=== PATIENT | male | born 1970 | race Caucasian/White ===

== ENCOUNTER 2017-01-13 12:10 | Inpatient (IN) | payer MEDICAID ==
[~2017-01-13] VITALS: Ht 188 cm; Wt 110.8 kg
[2017-01-13 12:24] VITALS: BP 138/105; PULSE 97; RESP 16; TEMP 99.1; O2SAT 96
[2017-01-13] MEDS ORDERED: SODIUM CHLOR 0.9% 1000 ML INJ 1,000 ML IV SCH (12:46)
[2017-01-13] MEDS ORDERED: FLUC100T2 PO (12:53)
[2017-01-13] MEDS ORDERED: FURO20TA PO (12:53)
[2017-01-13] MEDS ORDERED: LEVE750T8 PO (12:53)
[2017-01-13] MEDS ORDERED: OMEP40CA2 PO (12:53)
[2017-01-13] MEDS ORDERED: BACT800T5 PO (12:53)
[2017-01-13] MEDS ORDERED: LORA1TAB12 PO (12:53)
[2017-01-13] MEDS ORDERED: AMLO5TAB2 PO (12:53)
[2017-01-13] MEDS ORDERED: DEXA2TAB PO (12:53)
[2017-01-13] MEDS ORDERED: LISI20TA3 PO (12:53)
--- NOTE | 2017-01-13 12:53 | PD ---
HPI Chief Complaint: Abdominal Pain Time Seen by Provider: 12:32 Travel History International Travel<30 days: No Contact w/Intl Traveler<30days: No Traveled to known affect area: No History of Present Illness HPI The patient is a 46-year-old male who presents to the emergency department for epigastric abdominal pain. The patient states he developed epigastric abdominal pain last night. The pain is located in epigastrium, radiates to the back, is associated with nausea and vomiting last night. The patient denies any history of similar symptoms in the past, however, does have a history of bilateral flank pain secondary to a previous kidney infection. The patient denies any known history of gallstones or pancreatitis, denies any daily alcohol use. The patient does note a previous history of inguinal hernia repair, but denies any other abdominal surgeries. The patient denies any fever , chills, sweats, chest pain, or shortness of breath. The patient does have a history of previous astrocytoma and glioblastoma with previous surgery by his oncologist, the patient is from [place]. PFSH Past Medical History Cancer: Yes (GLIOBLASTOMA) Chemotherapy: Yes Hypertension: Yes Seizures: Yes Influenza Vaccination: No Past Surgical History Other Surgery: Yes (BRAIN TUMOR:GLIOBLASTOMA) Social History Alcohol Use: Yes (rarely) Tobacco Use: Yes (1 ppd) Substance Use: No Allergies-Medications (Allergen,Severity, Reaction): Coded Allergies: Codeine (Verified Adverse Reaction, Intermediate, SLEEP, 01/13/17) Reported Meds & Prescriptions Reported Meds & Active Scripts Active Reported Lorazepam 1 Mg Tab 1 Mg PO Q6H PRN Furosemide 20 Mg Tab 20 Mg PO DAILY Dexamethasone 2 Mg Tab 2 Mg PO DAILY Fluconazole 100 Mg Tab 100 Mg PO DAILY Amlodipine (Amlodipine Besylate) 5 Mg Tab 5 Mg PO DAILY Omeprazole 40 Mg Cap 40 Mg PO DAILY Bactrim DS (Sulfamethoxazole-Trimethoprim) 800-160 Mg Tab 1 Tab PO BID Lisinopril-Hctz 20-25 Mg Tab 1 Tab PO DAILY Levetiracetam 750 Mg Tab 750 Mg PO BID Review of Systems Except as stated in HPI: all other systems reviewed are Neg General / Constitutional: No: Fever Cardiovascular: No: Chest Pain or Discomfort Respiratory: No: Shortness of Breath Gastrointestinal: Positive: Nausea, Vomiting, Abdominal Pain, No: Diarrhea Genitourinary: No: Urgency, Frequency, Dysuria Skin: No Rash Physical Exam Narrative GENERAL: Awake, alert, pleasant 46-year-old male who appears his stated age and is in no acute respiratory distress. SKIN: Warm and dry. HEAD: Well-healed scar right aspect of the head. EYES: No injection or drainage. ENT: No nasal bleeding or discharge. Mucous membranes pink and moist. NECK: Trachea midline. No JVD. CARDIOVASCULAR: Regular rate and rhythm. No murmur appreciated. RESPIRATORY: No accessory muscle use. Clear to auscultation. Breath sounds equal bilaterally. GASTROINTESTINAL: Abdomen soft, stria noted. Tenderness in epigastrium and right upper quadrant. No guarding or rigidity. MUSCULOSKELETAL: No obvious deformities. No clubbing. No cyanosis. No edema. NEUROLOGICAL: Awake and alert. No obvious cranial nerve deficits. Motor grossly within normal limits. Normal speech. PSYCHIATRIC: Appropriate mood and affect; insight and judgment normal. Data Data Last Documented VS Vital Signs Date Time Temp Pulse Resp B/P Pulse Ox O2 Delivery O2 Flow Rate FiO2 01/13/17 13:44 18 01/13/17 13:23 97 Room Air 01/13/17 13:19 74 161/102 01/13/17 12:24 99.1 Orders Complete Blood Count With Diff (01/13/17 12:46) Comprehensive Metabolic Panel (01/13/17 12:46) Lipase (01/13/17 12:46) Urinalysis - C+S If Indicated (01/13/17 12:46) Ct Abd/Pel W/O Iv Contrast (01/13/17 12:46) Iv Access Insert/Monitor (01/13/17 12:46) Ecg Monitoring (01/13/17 12:46) Oximetry (01/13/17 12:46) Morphine Inj (Morphine Inj) (01/13/17 13:00) Ondansetron Inj (Zofran Inj) (01/13/17 13:00) Sodium Chlor 0.9% 1000 Ml Inj (Ns 1000 M (01/13/17 12:46) Sodium Chloride 0.9% Flush (Ns Flush) (01/13/17 13:00) Electrocardiogram (01/13/17 12:46) Triglycerides (01/13/17 13:49) Sodium Chlor 0.9% 1000 Ml Inj (Ns 1000 M (01/13/17 14:00) Admit Order (Ed Use Only) (01/13/17 14:22) Labs Laboratory Tests Test 01/13/17 01/13/17 13:00 13:05 Urine Collection Type CLEAN CATCH Urine Color YELLOW Urine Turbidity CLEAR Urine pH 5.5 Urine Specific [place] 1.035 Urine Protein TRACE mg/dL Urine Glucose (UA) 500 mg/dL Urine Ketones 15 mg/dL Urine Occult Blood LARGE Urine Nitrite NEG Urine Bilirubin NEG Urine Leukocyte Esterase NEG Urine RBC 15-19 /hpf Urine WBC 0-2 /hpf Urine Squamous Epithelial 0-5 /hpf Cells Microscopic Urinalysis Comment CULT NOT INDICATED Urine Collection Time 13:00 White Blood Count 14.4 TH/MM3 Red Blood Count 5.07 MIL/MM3 Hemoglobin 16.1 GM/DL Hematocrit 45.7 % Mean Corpuscular Volume 90.2 FL Mean Corpuscular Hemoglobin 31.7 PG Mean Corpuscular Hemoglobin 35.2 % Concent Red Cell Distribution Width 14.1 % Platelet Count 206 TH/MM3 Mean Platelet Volume 9.0 FL CBC Comment AUTO DIFF Differential Total Cells 100 Counted Neutrophils % (Manual) 78 % Band Neutrophils % 6 % Lymphocytes % 6 % Monocytes % 9 % Eosinophils % 1 % Neutrophils # (Manual) 12.1 TH/MM3 Differential Comment FINAL DIFF MANUAL Sodium Level 131 MEQ/L Potassium Level 3.7 MEQ/L Chloride Level 93 MEQ/L Carbon Dioxide Level 25.3 MEQ/L Anion Gap 13 MEQ/L Blood Urea Nitrogen 9 MG/DL Creatinine 0.89 MG/DL Estimat Glomerular Filtration 92 ML/MIN Rate Random Glucose 348 MG/DL Calcium Level 7.9 MG/DL Total Bilirubin 0.9 MG/DL Aspartate Amino Transf 99 U/L (AST/SGOT) Alanine Aminotransferase 72 U/L (ALT/SGPT) Alkaline Phosphatase 70 U/L Total Protein 7.1 GM/DL Albumin 3.4 GM/DL Lipase 2053 U/L [facility] Medical Decision Making Medical Screen Exam Complete: Yes Emergency Medical Condition: Yes Medical Record Reviewed: Yes Interpretation(s) EKG reveals normal sinus rhythm with a rate 83. Nonspecific T wave changes. CT the abdomen and pelvis reveals inflammatory swelling and a small amount of fluid around the patella pancreas, likely pancreatitis. There is no evidence of ductal dilatation, calcification, or atrophy to suggest underlying malignancy. Fatty liver. Last Impressions Abdomen/Pelvis CT 01/13/17 0106 Signed Impressions: Service Date/Time: Friday, January 13, 2017 13:19 - CONCLUSION: Inflammatory swelling and a small amount of fluid around the tail of the pancreas likely pancreatitis. There is no evidence of ductal dilatation, calcification or atrophy to suggest underlying malignancy. Fatty liver John Dugan MD Laboratory Tests Test 01/13/17 01/13/17 13:00 13:05 Urine Collection Type CLEAN CATCH Urine Color YELLOW Urine Turbidity CLEAR Urine pH 5.5 Urine Specific [place] 1.035 Urine Protein TRACE mg/dL Urine Glucose (UA) 500 mg/dL Urine Ketones 15 mg/dL Urine Occult Blood LARGE Urine Nitrite NEG Urine Bilirubin NEG Urine Leukocyte Esterase NEG Urine RBC 15-19 /hpf Urine WBC 0-2 /hpf Urine Squamous Epithelial 0-5 /hpf Cells Microscopic Urinalysis Comment CULT NOT INDICATED Urine Collection Time 13:00 White Blood Count 14.4 TH/MM3 Red Blood Count 5.07 MIL/MM3 Hemoglobin 16.1 GM/DL Hematocrit 45.7 % Mean Corpuscular Volume 90.2 FL Mean Corpuscular Hemoglobin 31.7 PG Mean Corpuscular Hemoglobin 35.2 % Concent Red Cell Distribution Width 14.1 % Platelet Count 206 TH/MM3 Mean Platelet Volume 9.0 FL CBC Comment AUTO DIFF Differential Total Cells 100 Counted Neutrophils % (Manual) 78 % Band Neutrophils % 6 % Lymphocytes % 6 % Monocytes % 9 % Eosinophils % 1 % Neutrophils # (Manual) 12.1 TH/MM3 Differential Comment FINAL DIFF MANUAL Sodium Level 131 MEQ/L Potassium Level 3.7 MEQ/L Chloride Level 93 MEQ/L Carbon Dioxide Level 25.3 MEQ/L Anion Gap 13 MEQ/L Blood Urea Nitrogen 9 MG/DL Creatinine 0.89 MG/DL Estimat Glomerular Filtration 92 ML/MIN Rate Random Glucose 348 MG/DL Calcium Level 7.9 MG/DL Total Bilirubin 0.9 MG/DL Aspartate Amino Transf 99 U/L (AST/SGOT) Alanine Aminotransferase 72 U/L (ALT/SGPT) Alkaline Phosphatase 70 U/L Total Protein 7.1 GM/DL Albumin 3.4 GM/DL Lipase 2053 U/L Differential Diagnosis Differential diagnosis includes pancreatitis, gastritis, peptic ulcer disease, biliary colic, cholecystitis, choledocholithiasis, inferior myocardial infarction, pyelonephritis, nephrolithiasis, partial small bowel obstruction. Narrative Course IV was established, labs are drawn and sent, and the patient was placed on cardiac telemetry monitoring and continuous pulse oximetry monitoring. EKG was ordered and interpreted. The patient was administered IV fluids, morphine, and Zofran. CT of the abdomen and pelvis was ordered. Lipase level was sent to lab. Lipase was positive, greater than 2000. CT the abdomen and pelvis reveals inflammatory swelling and a small amount of fluid around to tell the pancreas consistent with acute pancreatitis, no evidence of ductal dilatation. The patient's glucose is elevated, his pancreatitis may be secondary to hypertriglyceridemia. Therefore, triglyceride level will be sent to lab. The on-call medical service was paged for admission. Physician Communication Physician Communication I discussed the patient with Dr. Pool who agrees with admission. Diagnosis Primary Impression: Pancreatitis Qualified Code: K85.90 - Acute pancreatitis, unspecified complication status, unspecified pancreatitis type Admitting Information Admitting Physician Requests: Admit Condition: Stable Félix Don MD Jan 13, 2017 12:53
[2017-01-13] MEDS ORDERED: ONDANSETRON HCL 4 MG/2 ML VIAL IVP ONE (13:00)
[2017-01-13] MEDS ORDERED: MORPHINE SULFATE 4 MG/ML INJ IV PUSH ONE (13:00)
[2017-01-13] MEDS ORDERED: SODIUM CHLORIDE 0.9% FLUSH 5 ML FLUSH IVF PRN (13:00)
[2017-01-13 13:12] LABS: BLOOD, URINE LARGE (NEG); GLUCOSE,URINE 500 mg/dL (NEG); KETONE, URINE 15 mg/dL (NEG); NITRITE,URINE NEG (NEG); PH, URINE 5.5 (5.0-8.5)
[2017-01-13 13:18] LABS: HEMATOCRIT 45.7 % (39.0-51.0); MEAN CELL VOLUME 90.2 FL (80.0-100.0); MEAN CORPUSCULAR HEMOGLOBIN 31.7 PG (27.0-34.0); MEAN CORPUSCULAR HGB CONC 35.2 % (32.0-36.0); PLATELET COUNT 206 TH/MM3 (150-450); RED BLOOD COUNT 5.07 MIL/MM3 (4.50-5.90); RED CELL DISTRIBUTION WIDTH 14.1 % (11.6-17.2); WHITE BLOOD COUNT 14.4 TH/MM3 (4.0-11.0)
[2017-01-13 13:19] VITALS: BP 161/102; PULSE 74; RESP 18; O2SAT 97
[2017-01-13 13:23] VITALS: RESP 18; O2SAT 97
[2017-01-13 13:23] LABS: CHLORIDE 93 MEQ/L (98-107); POTASSIUM 3.7 MEQ/L (3.5-5.1); SODIUM (NA) 131 MEQ/L (136-145)
[2017-01-13 13:24] LABS: COMMENT (UR) CULT NOT INDICATED; CULTURE IF INDICATED CULT NOT INDICATED; METHOD OF COLLECTION CLEAN CATCH; RBC, URINE 15-19 /hpf (0-3); SQUAMOUS EPITHELIAL CELL URINE 0-5 /hpf (0-5); URINE COLOR YELLOW (YELLW/STRAW); WBC, URINE 0-2 /hpf (0-5)
[2017-01-13 13:25] LABS: HEMO FLAGS AUTO DIFF
[2017-01-13 13:28] LABS: ANION GAP 13 MEQ/L (5-15); BICARBONATE 25.3 MEQ/L (21.0-32.0)
[2017-01-13 13:31] LABS: GLOMERULAR FILTRATION RATE 92 ML/MIN (>89)
[2017-01-13 13:32] LABS: TOTAL BILIRUBIN ADULT 0.9 MG/DL (0.2-1.0)
[2017-01-13 13:33] LABS: ALKALINE PHOSPHATASE 70 U/L (45-117)
--- NOTE | 2017-01-13 13:42 | RADHPO ---
EXAM DATE/TIME: 01/13/2017 13:19 [facility] COMPARISON: No previous studies available for comparison. INDICATIONS : Epigastric pain, radiating to back. ORAL CONTRAST: No oral contrast ingested. RADIATION DOSE: 21.76 CTDIvol (mGy) MEDICAL HISTORY : Hypertension. Glioblastoma. SURGICAL HISTORY : Craniotomy. ENCOUNTER: Initial ACUITY: 1 day PAIN SCALE: 2/10 LOCATION: upper quadrant TECHNIQUE: Volumetric scanning of the abdomen and pelvis was performed. Using automated exposure control and ad justment of the mA and/or kV according to patient size, radiation dose was kept as low as reasonably achievable to obtain optimal diagnostic quality images. FINDINGS: LOWER LUNGS: The visualized lower lungs are clear. LIVER: Homogeneously lower density without lesion. There is no dilation of the biliary tree. No calcified gallstones. SPLEEN: Normal size without lesion. PANCREAS: Inflammatory swelling and a small amount of fluid around the tail of the pancreas likely pancreatitis . There is no evidence of ductal dilatation, calcification or atrophy to suggest underlying malignanc y.. KIDNEYS: Normal in size and shape. There is no mass, stone, or hydronephrosis. ADRENAL GLANDS: Within normal limits. VASCULAR: There is no aortic aneurysm. BOWEL/MESENTERY: The stomach, small bowel, and colon demonstrate no acute abnormality. There is no free intraperitone al air or fluid. ABDOMINAL WALL: Within normal limits. RETROPERITONEUM: There is no lymphadenopathy. BLADDER: No wall thickening or mass. REPRODUCTIVE: Within normal limits. INGUINAL: There is no lymphadenopathy or hernia. MUSCULOSKELETAL: Within normal limits for patient age. CONCLUSION: Inflammatory swelling and a small amount of fluid around the tail of the pancreas likely pancreatitis . There is no evidence of ductal dilatation, calcification or atrophy to suggest underlying malignanc y. Fatty liver John Dugan MD on January 13, 2017 at 13:39 Board Certified Radiologist. This report was verified electronically.
[2017-01-13 13:46] LABS: ALT (GPT) 72 U/L (12-78); AST (GOT) 99 U/L (15-37)
[2017-01-13 13:47] LABS: BLOOD UREA NITROGEN 9 MG/DL (7-18)
[2017-01-13 13:52] LABS: BANDS 6 % (0-6); EOSINOPHILS 1 % (0-4); NEUTROPHIL # MANUAL DIFF 12.1 TH/MM3 (1.8-7.7); POLYS (SEG NEUTROPHILS) 78 % (16-70); SCAN/DIFF FINAL DIFF MANUAL; WBC DIFF SAMPLE 100
[2017-01-13] MEDS ORDERED: SODIUM CHLOR 0.9% 1000 ML INJ 1,000 ML IV ONE ×2 (14:00→15:30)
[2017-01-13 14:45] VITALS: BP 139/90; PULSE 90; RESP 16; O2SAT 98
[2017-01-13] MEDS ORDERED: ONDANSETRON HCL 4 MG/2 ML VIAL IVP PRN (15:30)
[2017-01-13] MEDS ORDERED: GLUCAGON 1 MG/ML VIAL OTHER PRN (15:30)
[2017-01-13] MEDS ORDERED: SODIUM CHLORIDE 0.9% FLUSH 5 ML FLUSH FLUSH PRN (15:30)
[2017-01-13] MEDS ORDERED: LORazepam 1 MG TAB PO PRN (15:30)
[2017-01-13] MEDS ORDERED: DEXTROSE 50% IN WATER 50 ML VIAL(D50) IV PUSH PRN (15:30)
--- NOTE | 2017-01-13 15:38 | HHI.HP ---
[facility] Service [facility] Primary Care Physician No Primary Care Physician Admission Diagnosis pancreatitis, hyperglycemia Diagnoses: Chief Complaint: Epigastric abdominal pain Travel History International Travel<30 Days: No Contact w/Intl Traveler <30 Da: No Traveled to Known Affected Are: No History of Present Illness A 46-year-old gentleman with a history of brain tumors who have developed acute onset of epigastric pain for 2 days. He did take Advil once and this improved however he did come back and that is flaking to the hospital. He had elevated lipase and associated nausea and vomiting. He does not drink alcohol does admit that sugars have been high in the past. He has random blood sugar of 348. He has been on dexamethasone for his brain tumors and denies any recent change in his steroids. The patient is admitted to the hospital to do her dehydration with associated pancreatitis and likely new onset diabetes. Review of Systems Constitutional: DENIES: Diaphoretic episodes, Fatigue, Fever, Weight gain, Weight loss, Chills, Dizziness, Change in appetite, Night Sweats Endocrine: DENIES: Heat/cold intolerance, Polydipsia, Polyuria, Polyphagia Ears, nose, mouth, throat: DENIES: Tinnitus, Hearing loss, Vertigo, Nasal discharge, Oral lesions, Throat pain, Hoarseness, Ear Pain, Running Nose, Epistaxis, Sinus Pain, Toothache, Odynophagia Respiratory: DENIES: Apneas, Cough, Snoring, Wheezing, Hemoptysis, Sputum production, Shortness of breath Cardiovascular: DENIES: Chest pain, Palpitations, Syncope, Dyspnea on Exertion , PND, Lower Extremity Edema, Orthopnea, Claudication Gastrointestinal: COMPLAINS OF: Abdominal pain, Nausea, Anorexia Genitourinary: DENIES: Sexual dysfunction, Urinary frequency, Urinary incontinence, Urgency, Hematuria, Dysuria, Nocturia, Penile Discharge, Testicular Pain, Testicular Swelling Neurologic: DENIES: Abnormal gait, Headache, Localized weakness, Paresthesias, Seizures, Speech Problems, Tremor, Poor Balance Psychiatric: COMPLAINS OF: Confusion (at baseline due to his brain tumors), DENIES: Anxiety, Mood changes, Depression, Hallucinations, Agitation, Suicidal Ideation, Homicidal Ideation, Delusions Past Family Social History Past Medical History Glioblastoma multiforme, astrocytoma Chronic steroids Hypertension Seizure prophylaxis Past Surgical History Resection of brain tumor Reported Medications Reviewed in the medical record Allergies: Coded Allergies: Codeine (Verified Adverse Reaction, Intermediate, SLEEP, 01/13/17) Active Ordered Medications Reviewed in the medical record Family History Family history of brain tumor, father did have a malignancy and there is no family history of diabetes Social History No current alcohol, tobacco or pack per day, lives in [place] and is visiting his mother Physical Exam Vital Signs Vital Signs Date Time Temp Pulse Resp B/P Pulse Ox O2 Delivery O2 Flow Rate FiO2 01/13/17 14:45 90 16 139/90 98 Room Air 01/13/17 13:44 18 01/13/17 13:23 18 97 Room Air 01/13/17 13:19 74 18 161/102 97 Room Air 01/13/17 12:24 99.1 97 16 138/105 96 Physical Exam GENERAL: This is a obese, male with dry mucous membranes, calm, poor memory at baseline SKIN: No rashes, ecchymoses or lesions. Cool and dry. HEAD: Atraumatic. Normocephalic. No temporal or scalp tenderness. EYES: Pupils equal round and reactive. Extraocular motions intact. No scleral icterus. No injection or drainage. ENT: Nose without bleeding, purulent drainage or septal hematoma. Throat without erythema, tonsillar hypertrophy or exudate. Uvula midline. Airway patent. NECK: Trachea midline. No JVD or lymphadenopathy. Supple, nontender, no meningeal signs. CARDIOVASCULAR: Regular rate and rhythm without murmurs, gallops, or rubs. RESPIRATORY: Clear to auscultation. Breath sounds equal bilaterally. No wheezes , rales, or rhonchi. GASTROINTESTINAL: Abdomen soft, non-tender, nondistended. No hepato-splenomegaly , or palpable masses. No guarding. MUSCULOSKELETAL: Extremities without clubbing, cyanosis, or edema. No joint tenderness, effusion, or edema noted. No calf tenderness. Negative Homans sign bilaterally. NEUROLOGICAL: Awake and alert. Cranial nerves II through XII intact. Motor and sensory grossly within normal limits. Five out of 5 muscle strength in all muscle groups. Normal speech. Laboratory Laboratory Tests Test 01/13/17 01/13/17 13:00 13:05 Urine Collection Type CLEAN CATCH Urine Color YELLOW Urine Turbidity CLEAR Urine pH 5.5 Urine Specific [place] 1.035 Urine Protein TRACE Urine Glucose (UA) 500 Urine Ketones 15 Urine Occult Blood LARGE Urine Nitrite NEG Urine Bilirubin NEG Urine Leukocyte Esterase NEG Urine RBC 15-19 Urine WBC 0-2 Urine Squamous Epithelial 0-5 Cells Microscopic Urinalysis Comment CULT NOT INDICATED Urine Collection Time 13:00 White Blood Count 14.4 Red Blood Count 5.07 Hemoglobin 16.1 Hematocrit 45.7 Mean Corpuscular Volume 90.2 Mean Corpuscular Hemoglobin 31.7 Mean Corpuscular Hemoglobin 35.2 Concent Red Cell Distribution Width 14.1 Platelet Count 206 Mean Platelet Volume 9.0 CBC Comment AUTO DIFF Differential Total Cells 100 Counted Neutrophils % (Manual) 78 Band Neutrophils % 6 Lymphocytes % 6 Monocytes % 9 Eosinophils % 1 Neutrophils # (Manual) 12.1 Differential Comment FINAL DIFF MANUAL Sodium Level 131 Potassium Level 3.7 Chloride Level 93 Carbon Dioxide Level 25.3 Anion Gap 13 Blood Urea Nitrogen 9 Creatinine 0.89 Estimat Glomerular Filtration 92 Rate Random Glucose 348 Calcium Level 7.9 Total Bilirubin 0.9 Aspartate Amino Transf 99 (AST/SGOT) Alanine Aminotransferase 72 (ALT/SGPT) Alkaline Phosphatase 70 Total Protein 7.1 Albumin 3.4 Lipase 2052 Result Diagram: 01/13/17 1305 01/13/17 1305 Imaging Last Impressions Abdomen/Pelvis CT 01/13/17 1246 Signed Impressions: Service Date/Time: Friday, January 13, 2017 13:19 - CONCLUSION: Inflammatory swelling and a small amount of fluid around the tail of the pancreas likely pancreatitis. There is no evidence of ductal dilatation, calcification or atrophy to suggest underlying malignancy. Fatty liver John Dugan MD Assessment and Plan Problem List: (1) Pancreatitis ICD Code: K85.90 Status: Acute Plan: Lipid panel pending Patient does not drink very much at all May be due to his new onset diabetes. Continue with IV fluids, clear liquid diet for now, control diabetes (2) DM2 (diabetes mellitus, type 2) ICD Code: E11.9 Status: Acute Plan: Appears to be a new diagnosis Patient's random blood sugars greater than 300. Will add Karie, clinical unit educator, follow-up lipid panel and check a TSH and hemoglobin A1c may be related to steroids as he has been on dexamethasone for his brain tumors Assessment and Plan Patient with a history of glioblastoma multiforme and astrocytoma Code Status Full code Discussed Condition With Patient, lina LANDIS M.D. Physician Certification 2 Midnight Certification Type: Admission for Inpatient Services Order for Inpatient Services The services are ordered in accordance with Medicare regulations or non- Medicare payer requirements, as applicable. In the case of services not specified as inpatient-only, they are appropriately provided as inpatient services in accordance with the 2-midnight benchmark. Estimated LOS (days): 3 3 days is the estimated time the patient will need to remain in the hospital, assuming treatment plan goals are met and no additional complications. Post-Hospital Plan: Home Notes: patient's mom to provide pcp in [place] Problem Qualifiers (1) Pancreatitis: Qualified Code: K85.90 - Acute pancreatitis, unspecified complication status, unspecified pancreatitis type Sary Pool MD Jan 13, 2017 15:38
[2017-01-13] MEDS: SODIUM CHLOR 0.9% 1000 ML INJ 1,000 ML IV SCH (15:44)
[2017-01-13] MEDS ORDERED: PILL SPLITTER OTHER PRN (15:45)
[2017-01-13 20:00] VITALS: BP 166/96; PULSE 98; RESP 20; TEMP 98.9; O2SAT 93
[2017-01-13] MEDS ORDERED: ENALAPRILAT 2.5 MG/2 ML VIAL IV PUSH PRN (20:00)
[2017-01-13] MEDS: SODIUM CHLORIDE 0.9% FLUSH 5 ML FLUSH FLUSH SCH (21:00)
[2017-01-13] MEDS ORDERED: INSULIN DETEMIR 100 UNITS/ML VIAL SQ SCH (21:00)
[2017-01-13] MEDS: levETIRAcetam 250 MG TAB PO SCH (21:37)
[2017-01-14] VITALS: BP 170/86; PULSE 109; RESP 20; TEMP 99.4; O2SAT 93
[2017-01-14] MEDS: SODIUM CHLOR 0.9% 1000 ML INJ 1,000 ML IV SCH ×2 (01:26→11:26)
[2017-01-14 04:00] VITALS: BP 130/76; PULSE 118; RESP 20; TEMP 99.5; O2SAT 94
[2017-01-14 06:40] LABS: MEAN CELL VOLUME 90.5 FL (80.0-100.0); MEAN CORPUSCULAR HEMOGLOBIN 30.9 PG (27.0-34.0); MEAN CORPUSCULAR HGB CONC 34.1 % (32.0-36.0); PLATELET COUNT 181 TH/MM3 (150-450); RED CELL DISTRIBUTION WIDTH 14.4 % (11.6-17.2); WHITE BLOOD COUNT 20.7 TH/MM3 (4.0-11.0)
[2017-01-14 06:52] LABS: CHLORIDE 97 MEQ/L (98-107); POTASSIUM 3.2 MEQ/L (3.5-5.1); SODIUM (NA) 133 MEQ/L (136-145)
[2017-01-14 06:55] LABS: HEMATOLOGY STUDY COMMENT ND; HEMO FLAGS AUTO DIFF
[2017-01-14 06:56] LABS: ANION GAP 15 MEQ/L (5-15); BICARBONATE 21.4 MEQ/L (21.0-32.0)
[2017-01-14 06:59] LABS: GLOMERULAR FILTRATION RATE 122 ML/MIN (>89)
[2017-01-14 07:49] LABS: NEUTROPHIL # MANUAL DIFF 17.8 TH/MM3 (1.8-7.7); PLATELET ESTIMATE SMEAR NORMAL (NORMAL); PLATELET MORPHOLOGY NORMAL (NORMAL); POLYS (SEG NEUTROPHILS) 86 % (16-70); SCAN/DIFF FINAL DIFF MANUAL; WBC DIFF SAMPLE 100
[2017-01-14 08:00] VITALS: BP 124/60; PULSE 87; RESP 18; TEMP 98.5; O2SAT 95
[2017-01-14 08:14] LABS: BLOOD UREA NITROGEN LESS THAN 4 MG/DL (7-18)
[2017-01-14] MEDS: levETIRAcetam 250 MG TAB PO SCH ×2 (08:43→21:20)
[2017-01-14] MEDS: LISINOPRIL 20 MG TAB PO SCH (08:44)
[2017-01-14] MEDS: HYDROCHLOROTHIAZIDE 25 MG TAB PO SCH (08:44)
[2017-01-14] MEDS: PANTOPRAZOLE SOD 40 MG DELAYED RELEASE TAB PO SCH (08:44)
[2017-01-14] MEDS: SODIUM CHLORIDE 0.9% FLUSH 5 ML FLUSH FLUSH SCH ×2 (08:45→21:21)
[2017-01-14] MEDS: FLUCONAZOLE 100 MG TAB PO SCH (08:45)
[2017-01-14] MEDS: amLODIPine BESYLATE 5 MG TAB PO SCH (08:53)
[2017-01-14] MEDS: DEXAMETHASONE 4 MG TAB PO SCH (08:53)
[2017-01-14] MEDS ORDERED: POTASSIUM CHLORIDE 10 MEQ CONTROLLED RELEASE TAB PO ONE ×2 (09:15→12:00)
[2017-01-14 10:00] LABS: HDL CHOLESTEROL 29.2 MG/DL (40.0-60.0)
--- NOTE | 2017-01-14 11:12 | HHI.PR ---
Subjective Remarks Patient seen and evaluated today in follow-up for acute pancreatitis likely secondary to hypertriglyceridemia of uncontrolled diabetes (new onset) patient' s triglycerides over 1999. Patient has some improvement with IV hydration and insulin overnight. We'll add.gemfibrozil. Care plan discussed with patient and with mom at bedside Abdominal pain improved. Patient will like to try to advance his diet Objective Vitals Vital Signs Date Time Temp Pulse Resp B/P Pulse Ox O2 Delivery O2 Flow Rate FiO2 01/14/17 08:00 98.5 87 18 124/60 95 01/14/17 04:00 99.5 118 20 130/76 94 01/14/17 00:00 99.4 109 20 170/86 93 01/13/17 20:00 98.9 98 20 166/96 93 Automatic Cuff 01/13/17 14:45 90 16 139/90 98 Room Air 01/13/17 13:44 18 01/13/17 13:23 18 97 Room Air 01/13/17 13:19 74 18 161/102 97 Room Air 01/13/17 12:24 99.1 97 16 138/105 96 I/O 01/13/17 01/13/17 01/13/17 01/14/17 01/14/17 01/14/17 07:00 15:00 23:00 07:00 15:00 23:00 Intake Total 414 ml 435 ml Balance 414 ml 435 ml Intake Oral 60 ml 60 ml IV Total 354 ml 375 ml # Voids 2 2 # Bowel Movements 0 0 Result Diagram: 01/14/17 0603 01/14/17 0603 Imaging Last Impressions Abdomen/Pelvis CT 01/13/17 1246 Signed Impressions: Service Date/Time: Friday, January 13, 2017 13:19 - CONCLUSION: Inflammatory swelling and a small amount of fluid around the tail of the pancreas likely pancreatitis. There is no evidence of ductal dilatation, calcification or atrophy to suggest underlying malignancy. Fatty liver John Dugan MD Objective Remarks GENERAL: This is a well-nourished, well-developed patient, in no apparent distress. Post craniotomy scar CARDIOVASCULAR: Regular rate and rhythm without murmurs, gallops, or rubs. RESPIRATORY: Clear to auscultation. Breath sounds equal bilaterally. No wheezes , rales, or rhonchi. GASTROINTESTINAL: Abdomen soft, non-tender, nondistended. Normal active bowel sounds MUSCULOSKELETAL: Extremities without clubbing, cyanosis, or edema. NEURO: Alert & Oriented x4 to person, place, time, situation. Moves all ext x4 Procedures None A/P Problem List: (1) Pancreatitis ICD Code: K85.90 Status: Acute Plan: likely due to hypertriglyceridemia secondary to new onset diabetes Patient does not drink very much at all continue insulin, gemfibrozil calcium corrected IVF PPI, (2) DM2 (diabetes mellitus, type 2) ICD Code: E11.9 Status: Acute Plan: Appears to be a new diagnosis Patient's random blood sugars greater than 300. Will cont bid Levemir, adult educator, follow-up lipid panel and nl TSH and hemoglobin A1c pending may be related to steroids as he has been on dexamethasone for his brain tumors (3) Brain tumor ICD Code: D49.6 Status: Acute Plan: Strip astrocytoma and glioblastoma managed in [place] and for which he is taking dexamethasone, keppra Status post right frontal craniotomy with encephalomalacia and surrounding bleeding ulcers. MRI report done 11/2016 shows stable edema Due to patient's encephalopathy mother has requested repeat MRI to the increase in confusion (4) Hypokalemia ICD Code: E87.6 Status: Acute Plan: replace, check mag (5) Hyperglyceridemia ICD Code: E78.1 Status: Acute Plan: Gemfibrozil, Insulin likely due to uncontrolled DM2 Assessment and Plan heparin Discharge Planning from [place] Problem Qualifiers (1) Pancreatitis: Qualified Code: K85.90 - Acute pancreatitis, unspecified complication status, unspecified pancreatitis type Sary Pool MD Jan 14, 2017 11:12
--- NOTE | 2017-01-14 11:28 | EKG ---
Date Performed: 01/13/2017 Time Performed: 12:51:28 PTAGE: 46 years EKG: Sinus rhythm Inferior T wave changes are nonspecific Borderline ECG NO PREVIOUS TRACING DOCTOR: John Jules Interpretating Date/Time 01/14/2017 11:26:55
[2017-01-14] MEDS ORDERED: SODIUM CHLOR 0.9% 1000 ML INJ 1,000 ML IV ONE (11:30)
[2017-01-14 12:00] VITALS: BP 132/94; PULSE 98; RESP 18; TEMP 98.1; O2SAT 96
[2017-01-14] MEDS: ASPIRIN EC 81 MG TABEC PO SCH (12:55)
[2017-01-14] MEDS: NICOTINE 14 MG/24 HR PATCH TD SCH (12:56)
[2017-01-14] MEDS: INSULIN DETEMIR 100 UNITS/ML VIAL SQ SCH ×2 (13:00→21:21)
[2017-01-14] MEDS: HEPARIN SODIUM - SQ 10,000 UNITS/ML VIAL SQ SCH ×2 (13:01→21:22)
[2017-01-14 15:47] LABS: HEMOGLOBIN A1a 1.1 %; HEMOGLOBIN A1b 3.3 %; HEMOGLOBIN Ao 76.4 %; HEMOGLOBIN LA1C 3.4 %; HEMOGLOBIN P3 5.4 %
[2017-01-14] MEDS ORDERED: GADODIAMIDE PF 287 MG/ML 20 ML VIAL (for RAD MRI) IV ONE (15:57)
[2017-01-14 16:00] VITALS: BP 126/89; PULSE 102; RESP 20; TEMP 98.6; O2SAT 95
--- NOTE | 2017-01-14 16:48 | RADHPO ---
EXAM DATE/TIME: 01/14/2017 15:26 [place] COMPARISON: No previous studies available for comparison. INDICATIONS : Mass. Confusion. Fatigue. History of Glioblastoma. CONTRAST: 20 cc Omniscan (gadodiamide) IV MEDICAL HISTORY : Glioblastoma. Hypertension. SURGICAL HISTORY : Craniotomy. Umbilical hernia repair. ENCOUNTER: Subsequent ACUITY: 2 day PAIN SCORE: 0/10 LOCATION: Head. TECHNIQUE: Multiplanar, multisequence MRI of the brain was performed both prior to and following the administrat ion of paramagnetic contrast. FINDINGS: The patient has a history of resection for a glioblastoma in the right orbital frontal region sitting just above the right orbit. There are periventricular white matter changes evident as well as posts urgical changes. Ventricular size is appropriate. There are no extra-axial fluid collections appreciated. Following intravenous administration of gadolinium there is no abnormal contrast enhancement to sugge st recurrent or residual tumor. CONCLUSION: Post surgical changes on the right without recurrent or residual tumor. I do not see an etiology for the patient's confusion and mental status changes. Teddy Sarkar MD FACR on January 14, 2017 at 16:24 Board Certified Radiologist. This report was verified electronically.
[2017-01-14] MEDS: GEMFIBROZIL 600 MG TAB PO SCH (18:36)
[2017-01-14 20:00] VITALS: BP 119/71; PULSE 108; RESP 20; TEMP 97.5; O2SAT 98
[2017-01-15] VITALS: BP 122/87; PULSE 99; RESP 18; TEMP 97.6; O2SAT 95
[2017-01-15] MEDS: SODIUM CHLOR 0.9% 1000 ML INJ 1,000 ML IV SCH ×3 (00:32→21:22)
[2017-01-15 06:07] LABS: HEMATOCRIT 43.7 % (39.0-51.0); MEAN CELL VOLUME 91.3 FL (80.0-100.0); MEAN CORPUSCULAR HEMOGLOBIN 31.6 PG (27.0-34.0); MEAN CORPUSCULAR HGB CONC 34.6 % (32.0-36.0); PLATELET COUNT 152 TH/MM3 (150-450); RED BLOOD COUNT 4.79 MIL/MM3 (4.50-5.90); RED CELL DISTRIBUTION WIDTH 14.5 % (11.6-17.2); WHITE BLOOD COUNT 17.5 TH/MM3 (4.0-11.0)
[2017-01-15 06:11] LABS: HEMO FLAGS AUTO DIFF
[2017-01-15] MEDS: GEMFIBROZIL 600 MG TAB PO SCH (06:12)
[2017-01-15] MEDS: HEPARIN SODIUM - SQ 10,000 UNITS/ML VIAL SQ SCH ×3 (06:12→21:21)
[2017-01-15 06:35] LABS: BANDS 6 % (0-6); NEUTROPHIL # MANUAL DIFF 15.6 TH/MM3 (1.8-7.7); POLYS (SEG NEUTROPHILS) 83 % (16-70); WBC DIFF SAMPLE 100
[2017-01-15 06:36] LABS: PLATELET ESTIMATE SMEAR NORMAL (NORMAL); PLATELET MORPHOLOGY NORMAL (NORMAL); SCAN/DIFF FINAL DIFF MANUAL
[2017-01-15 08:00] VITALS: BP 130/100; PULSE 103; RESP 26; TEMP 97.7; O2SAT 95
[2017-01-15] MEDS: HYDROCHLOROTHIAZIDE 25 MG TAB PO SCH (08:26)
[2017-01-15] MEDS: LISINOPRIL 20 MG TAB PO SCH (08:27)
[2017-01-15] MEDS: amLODIPine BESYLATE 5 MG TAB PO SCH (08:27)
[2017-01-15] MEDS: PANTOPRAZOLE SOD 40 MG DELAYED RELEASE TAB PO SCH (08:28)
[2017-01-15] MEDS: FLUCONAZOLE 100 MG TAB PO SCH (08:28)
[2017-01-15] MEDS: DEXAMETHASONE 4 MG TAB PO SCH (08:28)
[2017-01-15] MEDS: ASPIRIN EC 81 MG TABEC PO SCH (08:29)
[2017-01-15] MEDS: levETIRAcetam 250 MG TAB PO SCH ×2 (08:29→21:21)
[2017-01-15] MEDS: NICOTINE 14 MG/24 HR PATCH TD SCH (08:31)
[2017-01-15] MEDS: REMOVE OLD NICODERM (NICOTINE) PATCH TD SCH (08:31)
[2017-01-15] MEDS: SODIUM CHLORIDE 0.9% FLUSH 5 ML FLUSH FLUSH SCH ×2 (08:32→21:21)
[2017-01-15] MEDS: INSULIN DETEMIR 100 UNITS/ML VIAL SQ SCH (08:36)
[2017-01-15] MEDS ORDERED: ATORVASTATIN 20 MG TAB PO SCH (09:00)
--- NOTE | 2017-01-15 10:41 | HHI.DS ---
Discharge Summary Admission Date Jan 13, 2017 at 14:23 Discharge Date: Jan 15, 2017 Admitting Diagnosis pancreatitis, hyperglycemia (1) Pancreatitis ICD Code: K85.90 (2) DM2 (diabetes mellitus, type 2) ICD Code: E11.9 (3) Brain tumor ICD Code: D49.6 (4) Hypokalemia ICD Code: E87.6 (5) Hyperglyceridemia ICD Code: E78.1 Procedures None Brief History - From Admission A 46-year-old gentleman with a history of brain tumors who have developed acute onset of epigastric pain for 2 days. He had elevated lipase and associated nausea and vomiting. He does not drink alcohol does admit that sugars have been high in the past. He has random blood sugar of 348. He has been on dexamethasone for his brain tumors and denies any recent change in his steroids. The patient is admitted to the hospital due to dehydration with associated pancreatitis and likely new onset diabetes. CBC/BMP: 01/15/17 0546 01/14/17 0603 Significant Findings Laboratory Tests Test 01/13/17 01/13/17 01/14/17 01/15/17 13:00 13:05 06:03 05:46 Urine Glucose (UA) 500 mg/dL (NEG) Urine Ketones 15 mg/dL (NEG) Urine Occult Blood LARGE (NEG) Urine RBC 15-19 /hpf (0-3) White Blood Count 14.4 TH/MM3 20.7 TH/MM3 17.5 TH/MM3 (4.0-11.0) (4.0-11.0) (4.0-11.0) Neutrophils % (Manual) 78 % (16-70) 86 % (16-70) 83 % (16-70) Lymphocytes % 6 % (9-44) 5 % (9-44) 7 % (9-44) Monocytes % 9 % (0-8) 9 % (0-8) Neutrophils # (Manual) 12.1 TH/MM3 17.8 TH/MM3 15.6 TH/MM3 (1.8-7.7) (1.8-7.7) (1.8-7.7) Sodium Level 131 MEQ/L 133 MEQ/L (136-145) (136-145) Chloride Level 93 MEQ/L 97 MEQ/L (98-107) (98-107) Random Glucose 348 MG/DL 288 MG/DL (74-106) (74-106) Calcium Level 7.9 MG/DL (8.5-10.1) Aspartate Amino Transf 99 U/L (15-37) (AST/SGOT) Lipase 2053 U/L 737 U/L (73-393) (73-393) Potassium Level 3.2 MEQ/L (3.5-5.1) Blood Urea Nitrogen LESS THAN 4 MG/DL (7-18) Hemoglobin A1c 9.8 % (4.3-6.0) Triglycerides Level 2240 MG/DL 1229 MG/DL (42-150) (42-150) Cholesterol Level 481 MG/DL (120-200) HDL Cholesterol 29.2 MG/DL (40.0-60.0) PE at Discharge GENERAL: Well-nourished, well-developed patient. SKIN: Warm and dry. HEAD: Normocephalic. EYES: No scleral icterus. No injection or drainage. NECK: Supple, trachea midline. No JVD or lymphadenopathy. CARDIOVASCULAR: Regular rate and rhythm without murmurs, gallops, or rubs. RESPIRATORY: Breath sounds equal bilaterally. No accessory muscle use. GASTROINTESTINAL: Abdomen soft, non-tender, nondistended. EXTREMITIES: No cyanosis, or edema. NEUROLOGICAL: Awake, alert, and oriented x 3. Non-focal. Gait within normal limits. Pt update on day of discharge Patient has tolerated breakfast. Denies any abdominal pain nausea or vomiting. Awaiting consultation with the glue drier operator. Discussed with the patient' s as well as his mother at bedside. They have a plane ticket for him to fly back up to [place] tomorrow with his and they will make an appointment with his primary care physician to be seen next week Dr. Christian Jiménez. Hospital Course Patient was admitted to the hospital and treated with pain medication and IV fluids. His triglycerides came back elevated greater than 2000. This is the likely etiology of the pancreatitis. The patient does not take any cholesterol medication. I will start him on Lipitor. The patient also has type 2 diabetes. His and mother are bedside. The patient's mother is quite a bit more knowledgeable about the patient's medical condition on the . Apparently the patient lives in [place] and has been down here visiting his mother for 6 weeks. Apparently the came down as well to see if they were going to live here. However they have children in a house up in [place] and plan to fly him back up there tomorrow. Patient's and mother have a lot of questions about diabetes. The glue drier operator has been consulted. Yesterday they felt the patient was more confused. A brain MRI showed postsurgical changes with no acute findings, no masses. Patient is alert and oriented today and ambulatory. Patient agrees to take his diabetes medications as prescribed. I have asked the patient's and mother to schedule him a follow-up appointment with his primary care physician in [place] to be seen next week. He will be treated with metformin and glipizide for the diabetes as I am not sure that the patient or his will be comfortable using insulin at this time. Hemoglobin A1c was 9.8. Per his oncologist (Dr. Grant) the patient tends to have seizures when he was weaned off the Decadron therefore he recommended titrating his diabetes medication to control the blood sugar and staying on the Decadron. He will follow-up with the patient next week. He also informed today that this is the patient's ex- , not . Pt Condition on Discharge: Stable Discharge Disposition: Discharge Home Discharge Time: > 30 minutes Discharge Instructions DIET: Follow Instructions for: Diabetic Diet New Medications: Blood Glucose Monitoring W/Device (Glucocom Blood Glucose Mo W/Device) 1 Kit Kit 1 KIT .ROUTE DIRECTED Blood Sugar Management #1 KIT Glipizide (Glipizide) 5 Mg Tab 5 MG PO BID Take 30 minutes before a meal Blood Sugar Management #60 Ref 0 TAB Lancets (Lancets) 1 Mis Mis 1 EA .ROUTE DIRECTED Blood Sugar Management #1 Ref 0 BOX Metformin (Metformin) 1,000 Mg Tab 1000 MG PO BIDPC With meals Blood Sugar Management #60 Ref 0 TAB Atorvastatin (Lipitor) 40 Mg Tab 40 MG PO HS Cholesterol Management #30 TAB Continued Medications: Amlodipine (Amlodipine) 5 Mg Tab 5 MG PO DAILY Blood Pressure Management #30 Ref 0 TAB Dexamethasone (Dexamethasone) 2 Mg Tab 2 MG PO DAILY #30 Ref 0 TAB Fluconazole (Fluconazole) 100 Mg Tab 100 MG PO DAILY Infection Ref 0 TAB Furosemide (Furosemide) 20 Mg Tab 20 MG PO DAILY #30 Ref 0 TAB Levetiracetam (Levetiracetam) 750 Mg Tab 750 MG PO BID Control Seizures #60 Ref 0 TAB Lisinopril-Hctz (Lisinopril-Hctz) 20-25 Mg Tab 1 TAB PO DAILY Blood Pressure Management #30 Ref 0 TAB Lorazepam (Lorazepam) 1 Mg Tab 1 MG PO Q6H PRN ANXIETY Ref 0 TAB Omeprazole (Omeprazole) 40 Mg Cap 40 MG PO DAILY #30 Ref 0 CAP Sulfamethoxazole-Trimethoprim (Bactrim DS) 800-160 Mg Tab 1 TAB PO BID Infection Ref 0 TAB Zully Bradford MD Jan 15, 2017 10:41
[2017-01-15] MEDS ORDERED: GLIP5TAB8 PO (10:43)
[2017-01-15] MEDS ORDERED: LANCETS1 MI1 (10:43)
[2017-01-15] MEDS ORDERED: METF1000 PO (10:43)
[2017-01-15] MEDS ORDERED: GLUCKIT15 (10:43)
[2017-01-15] MEDS ORDERED: LIPI40TA PO (10:48)
[2017-01-15 10:56] LABS: ALKALINE PHOSPHATASE 62 U/L (45-117); ALT (GPT) 44 U/L (12-78); ANION GAP 15 MEQ/L (5-15); AST (GOT) 18 U/L (15-37); BICARBONATE 17.4 MEQ/L (21.0-32.0); BLOOD UREA NITROGEN 10 MG/DL (7-18); CHLORIDE 101 MEQ/L (98-107); GLOMERULAR FILTRATION RATE 120 ML/MIN (>89); POTASSIUM 3.9 MEQ/L (3.5-5.1); SODIUM (NA) 133 MEQ/L (136-145); TOTAL BILIRUBIN ADULT 0.6 MG/DL (0.2-1.0)
[2017-01-15 12:00] VITALS: BP 125/80; PULSE 92; RESP 26; TEMP 99; O2SAT 95
[2017-01-15] MEDS ORDERED: glipiZIDE 5 MG TAB PO SCH ×2 (14:45→17:00)
--- NOTE | 2017-01-15 14:54 | HHI.PR ---
Subjective Remarks Patient denies abd pain, n or vomiting. he is ambulating well. no confusion. accuchecks 200-300, however increased this afternoon to high 300. Seen by supervisor fryer farm. Objective Vitals Vital Signs Date Time Temp Pulse Resp B/P Pulse Ox O2 Delivery O2 Flow Rate FiO2 01/15/17 12:00 99.0 92 26 125/80 95 01/15/17 08:00 97.7 103 26 130/100 95 01/15/17 00:00 97.6 99 18 122/87 95 01/14/17 20:00 97.5 108 20 119/71 98 01/14/17 16:00 98.6 102 20 126/89 95 I/O 01/14/17 01/14/17 01/14/17 01/15/17 01/15/17 01/15/17 07:00 15:00 23:00 07:00 15:00 23:00 Intake Total 435 ml 650 ml 720 ml 1689 ml 720 ml Balance 435 ml 650 ml 720 ml 1689 ml 720 ml Intake Oral 60 ml 650 ml 720 ml 240 ml 720 ml IV Total 375 ml 1449 ml # Voids 2 6 2 2 3 # Bowel Movements 0 0 0 0 Result Diagram: 01/15/17 0546 01/15/17 1015 Objective Remarks GENERAL: Well-nourished, well-developed patient. SKIN: Warm and dry. HEAD: Normocephalic. EYES: No scleral icterus. No injection or drainage. NECK: Supple, trachea midline. No JVD or lymphadenopathy. CARDIOVASCULAR: Regular rate and rhythm without murmurs, gallops, or rubs. RESPIRATORY: Breath sounds equal bilaterally. No accessory muscle use. GASTROINTESTINAL: Abdomen soft, non-tender, nondistended. EXTREMITIES: No cyanosis, or edema. NEUROLOGICAL: Awake, alert, and oriented x 3. Non-focal. Gait within normal limits. Procedures None A/P Problem List: (1) Pancreatitis ICD Code: K85.90 Status: Acute (2) DM2 (diabetes mellitus, type 2) ICD Code: E11.9 Status: Acute (3) Brain tumor ICD Code: D49.6 Status: Acute (4) Hypokalemia ICD Code: E87.6 Status: Acute (5) Hyperglyceridemia ICD Code: E78.1 Status: Acute Assessment and Plan -Acute pancreatitis - His triglycerides came back elevated greater than 2000. This is the likely etiology of the pancreatitis. The patient does not take any cholesterol medication. I will start him on Lipitor. -Newly diagnosed type 2 diabetes. His and mother are bedside. The patient 's mother is quite a bit more knowledgeable about the patient's medical condition on the . Apparently the patient lives in [place] and has been down here visiting his mother for 6 weeks. Apparently the (ex) came down as well to see if they were going to live here. However they have children in a house up in [place] and plan to fly him back up there tomorrow. Patient's and mother have a lot of questions about diabetes. The table worker has seen the patient. We will start him on glipizide and metformin. Patient agrees to take his diabetes medications as prescribed. I have asked the patient's and mother to schedule him a follow-up appointment with his primary care physician in [place] to be seen next week. Hemoglobin A1c was 9.8. We were planning on discharging the patient however the table worker requests we observe the patient again overnight as his blood sugar has been increasing and apparently the patient's ex- is not comfortable yet taking him home. -Confusion - Yesterday the family felt the patient was more confused. A brain MRI showed postsurgical changes with no acute findings, no masses. Patient is alert and oriented today and ambulatory. Per his oncologist (Dr. Grant) the patient tends to have seizures when he was weaned off the Decadron therefore he recommended titrating his diabetes medication to control the blood sugar and staying on the Decadron. He will follow-up with the patient next week. Per his oncologist patient is high functioning. -History of glioblastoma multiforme, s/p resection - MRI brain with postsurgical changes only. cont keppra, decadron. -HTN - cont norvasc, hctz, lisinopril. Discharge Planning Discharge home tomorrow if accucheck trends improved. I educated the patient as well as the patient's mother, and ex- that it will take some time to get his diabetes under tight control and that we will need to be a work in process with his primary care physician when he returns to [place]. Problem Qualifiers (1) Pancreatitis: Qualified Code: K85.90 - Acute pancreatitis, unspecified complication status, unspecified pancreatitis type Bruneau,Zully Brandi MD Jan 15, 2017 14:54
[2017-01-15] MEDS: glipiZIDE 5 MG TAB PO SCH ×2 (15:37→17:40)
[2017-01-15] MEDS: metFORMIN HCL 500 MG TAB PO SCH ×2 (15:38→17:40)
[2017-01-15 15:58] VITALS: BP 120/85; PULSE 83; RESP 24; TEMP 97.8; O2SAT 96
[2017-01-15] MEDS ORDERED: metFORMIN HCL 500 MG TAB PO SCH (18:00)
[2017-01-15 20:00] VITALS: BP 104/60; PULSE 81; RESP 20; TEMP 98.6; O2SAT 96
[2017-01-16] VITALS: BP 90/50; PULSE 75; RESP 20; TEMP 97.8; O2SAT 98
[2017-01-16 04:00] VITALS: BP 97/57; PULSE 68; RESP 20; TEMP 97.8; O2SAT 97
[2017-01-16] MEDS: SODIUM CHLOR 0.9% 1000 ML INJ 1,000 ML IV SCH (04:17)
[2017-01-16] MEDS: HEPARIN SODIUM - SQ 10,000 UNITS/ML VIAL SQ SCH (05:38)
[2017-01-16 08:00] VITALS: BP 128/85; PULSE 70; RESP 20; TEMP 96.6; O2SAT 98
[2017-01-16] MEDS: amLODIPine BESYLATE 5 MG TAB PO SCH (08:07)
[2017-01-16] MEDS: PANTOPRAZOLE SOD 40 MG DELAYED RELEASE TAB PO SCH (08:08)
[2017-01-16] MEDS: DEXAMETHASONE 4 MG TAB PO SCH (08:08)
[2017-01-16] MEDS: HYDROCHLOROTHIAZIDE 25 MG TAB PO SCH (08:08)
[2017-01-16] MEDS: FLUCONAZOLE 100 MG TAB PO SCH (08:08)
[2017-01-16] MEDS: glipiZIDE 5 MG TAB PO SCH (08:09)
[2017-01-16] MEDS: metFORMIN HCL 500 MG TAB PO SCH (08:09)
[2017-01-16] MEDS: ASPIRIN EC 81 MG TABEC PO SCH (08:09)
[2017-01-16] MEDS: LISINOPRIL 20 MG TAB PO SCH (08:10)
[2017-01-16] MEDS: NICOTINE 14 MG/24 HR PATCH TD SCH (08:10)
[2017-01-16] MEDS: REMOVE OLD NICODERM (NICOTINE) PATCH TD SCH (08:10)
[2017-01-16] MEDS: levETIRAcetam 250 MG TAB PO SCH (08:11)
[2017-01-16] MEDS: SODIUM CHLORIDE 0.9% FLUSH 5 ML FLUSH FLUSH SCH (08:13)
[2017-01-16] MEDS ORDERED: GLIP10TA6 PO (08:36)
[2017-01-16] MEDS ORDERED: INSU1MIS15 (08:38)
[2017-01-16] MEDS ORDERED: BIOM30MI (08:38)
[2017-01-16] MEDS ORDERED: NOVOLOGP2 SQ (08:38)
--- NOTE | 2017-01-16 09:44 | HHI.DS ---
Discharge Summary Admission Date Jan 13, 2017 at 14:23 Discharge Date: Jan 16, 2017 Admitting Diagnosis pancreatitis, hyperglycemia (1) Pancreatitis ICD Code: K85.90 (2) DM2 (diabetes mellitus, type 2) ICD Code: E11.9 (3) Brain tumor ICD Code: D49.6 (4) Hypokalemia ICD Code: E87.6 (5) Hyperglyceridemia ICD Code: E78.1 Procedures None Brief History - From Admission A 46-year-old gentleman with a history of brain tumors who have developed acute onset of epigastric pain for 2 days. He had elevated lipase and associated nausea and vomiting. He does not drink alcohol does admit that sugars have been high in the past. He has random blood sugar of 348. He has been on dexamethasone for his brain tumors and denies any recent change in his steroids. The patient is admitted to the hospital due to dehydration with associated pancreatitis and likely new onset diabetes. CBC/BMP: 01/15/17 0546 01/15/17 1015 Significant Findings Laboratory Tests Test 01/13/17 01/13/17 01/14/17 01/15/17 13:00 13:05 06:03 05:46 Urine Glucose (UA) 500 mg/dL (NEG) Urine Ketones 15 mg/dL (NEG) Urine Occult Blood LARGE (NEG) Urine RBC 15-19 /hpf (0-3) White Blood Count 14.4 TH/MM3 20.7 TH/MM3 17.5 TH/MM3 (4.0-11.0) (4.0-11.0) (4.0-11.0) Neutrophils % (Manual) 78 % (16-70) 86 % (16-70) 83 % (16-70) Lymphocytes % 6 % (9-44) 5 % (9-44) 7 % (9-44) Monocytes % 9 % (0-8) 9 % (0-8) Neutrophils # (Manual) 12.1 TH/MM3 17.8 TH/MM3 15.6 TH/MM3 (1.8-7.7) (1.8-7.7) (1.8-7.7) Sodium Level 131 MEQ/L 133 MEQ/L (136-145) (136-145) Chloride Level 93 MEQ/L 97 MEQ/L (98-107) (98-107) Random Glucose 348 MG/DL 288 MG/DL (74-106) (74-106) Calcium Level 7.9 MG/DL (8.5-10.1) Aspartate Amino Transf 99 U/L (15-37) (AST/SGOT) Lipase 2053 U/L 737 U/L (73-393) (73-393) Potassium Level 3.2 MEQ/L (3.5-5.1) Blood Urea Nitrogen LESS THAN 4 MG/DL (7-18) Hemoglobin A1c 9.8 % (4.3-6.0) Triglycerides Level 2240 MG/DL 1229 MG/DL (42-150) (42-150) Cholesterol Level 481 MG/DL (120-200) HDL Cholesterol 29.2 MG/DL (40.0-60.0) Test 01/15/17 10:15 Erythrocyte Sedimentation Rate 46 mm/hr (0-15) Sodium Level 133 MEQ/L (136-145) Carbon Dioxide Level 17.4 MEQ/L (21.0-32.0) Random Glucose 242 MG/DL (74-106) Albumin 2.7 GM/DL (3.4-5.0) Folate GREATER THAN 20.0 NG/ML (3.1-17.5) PE at Discharge GENERAL: Well-nourished, well-developed patient. SKIN: Warm and dry. HEAD: Normocephalic. EYES: No scleral icterus. No injection or drainage. NECK: Supple, trachea midline. No JVD or lymphadenopathy. CARDIOVASCULAR: Regular rate and rhythm without murmurs, gallops, or rubs. RESPIRATORY: Breath sounds equal bilaterally. No accessory muscle use. GASTROINTESTINAL: Abdomen soft, non-tender, nondistended. EXTREMITIES: No cyanosis, or edema. NEUROLOGICAL: Awake, alert, and oriented x 3. Non-focal. Gait within normal limits. Pt update on day of discharge Patient denies any abdominal pain. Tolerating diet. Accu-Chek trend in the low 200s. Hospital Course Patient was admitted to the hospital and treated with pain medication and IV fluids. His triglycerides came back elevated greater than 2000. This is the likely etiology of the pancreatitis. The patient does not take any cholesterol medication. I will start him on Lipitor. The patient also has type 2 diabetes. His and mother are bedside. The patient's mother is quite a bit more knowledgeable about the patient's medical condition on the . Apparently the patient lives in [place] and has been down here visiting his mother for 6 weeks. Apparently the came down as well to see if they were going to live here. However they have children in a house up in [place] and plan to fly him back up there tomorrow. Patient's and mother have a lot of questions about diabetes. The simulation educator has worked with the patient and his ex- and mother. While hospitalized the patient's mother and ex- felt the patient was more confused. A brain MRI showed postsurgical changes with no acute findings, no masses. Speech therapy perform a cognitive evaluation and he scored a 26 out of 30 on the [place] cognitive assessment. The patient has not demonstrated any confusion to nurses or physicians. Patient remains alert and oriented today and ambulatory. Patient agrees to take his diabetes medications as prescribed. I have asked the patient's and mother to schedule him a follow-up appointment with his primary care physician in [place] to be seen next week. Hemoglobin A1c was 9.8. The patient was initiated on metformin and glipizide and his blood sugars have been in the 200s overnight and this morning. Per his oncologist ( Dr. Grant) the patient tends to have seizures when he was weaned off the Decadron therefore he recommended titrating his diabetes medication to control the blood sugar and staying on the Decadron. He will follow-up with the patient next week. Pt Condition on Discharge: Stable Discharge Disposition: Discharge Home Discharge Time: > 30 minutes Discharge Instructions DIET: Follow Instructions for: Diabetic Diet Activities you can perform: Regular-No Restrictions New Medications: Blood Glucose Monitoring W/Device (Glucocom Blood Glucose Mo W/Device) 1 Kit Kit 1 KIT .ROUTE DIRECTED Blood Sugar Management #1 KIT Glipizide (Glipizide) 10 Mg Tab 10 MG PO BIDAC Take 30 minutes before a meal Blood Sugar Management #60 Ref 0 TAB Insulin Aspart Inj (Novolog Inj) 1,000 Unit/10 Ml Vial 1-9 UNITS SQ ACHS Max dose at bedtime:(5 )units; sugars less than 70,(0)units; sugars 150-199,(1) unit; sugars 200-249,(3) units; sugars 250-299,(5) units; sugars 300-349,(7) units; sugars greater than 349,(9) units Blood Sugar Management #10 Ref 0 ML Insulin Syringe/U-100/31G X 5/16" 1 ml (Insulin Syringe/U-100/31G X 5/16" 1 ml) 1 Mis Mis 1 EA .ROUTE DIRECTED Blood Sugar Management #1 Ref 0 BOX Lancets (Lancets) 1 Mis Mis 1 EA .ROUTE DIRECTED Blood Sugar Management #1 Ref 0 BOX Metformin (Metformin) 1,000 Mg Tab 1000 MG PO BIDPC With meals Blood Sugar Management #60 Ref 0 TAB Parenteral Therapy Supplies (Sharpsafety Sharps Contai) 1 Mis Mis 1 EA .ROUTE DIRECTED #1 Ref 0 EA Atorvastatin (Lipitor) 40 Mg Tab 40 MG PO HS Cholesterol Management #30 TAB Continued Medications: Amlodipine (Amlodipine) 5 Mg Tab 5 MG PO DAILY Blood Pressure Management #30 Ref 0 TAB Dexamethasone (Dexamethasone) 2 Mg Tab 2 MG PO DAILY #30 Ref 0 TAB Fluconazole (Fluconazole) 100 Mg Tab 100 MG PO DAILY Infection Ref 0 TAB Furosemide (Furosemide) 20 Mg Tab 20 MG PO DAILY #30 Ref 0 TAB Levetiracetam (Levetiracetam) 750 Mg Tab 750 MG PO BID Control Seizures #60 Ref 0 TAB Lisinopril-Hctz (Lisinopril-Hctz) 20-25 Mg Tab 1 TAB PO DAILY Blood Pressure Management #30 Ref 0 TAB Lorazepam (Lorazepam) 1 Mg Tab 1 MG PO Q6H PRN ANXIETY Ref 0 TAB Omeprazole (Omeprazole) 40 Mg Cap 40 MG PO DAILY #30 Ref 0 CAP Sulfamethoxazole-Trimethoprim (Bactrim DS) 800-160 Mg Tab 1 TAB PO BID Infection Ref 0 TAB Zully Bradford MD Jan 16, 2017 09:44
[2017-01-16] MEDS ORDERED: ATORVASTATIN 40 MG TAB PO SCH (21:00)
== END 2017-01-16 09:35 | disposition home or self-care (01) | DRG 440 ==
LOC: PHED 12:10 → PHEDA 14:23 → PH3B 15:01
PROVIDERS: ADMIT Family Medicine; ATTEND Family Medicine
DX: K85.90 Acute pancreatitis without necrosis or infection, unspecified (principal); K76.0 Fatty (change of) liver, not elsewhere classified; E11.65 Type 2 diabetes mellitus with hyperglycemia; I10 Essential (primary) hypertension; F17.210 Nicotine dependence, cigarettes, uncomplicated; Z85.841 Personal history of malignant neoplasm of brain; Z88.5 Allergy status to narcotic agent; Z79.52 Long term (current) use of systemic steroids; E78.1 Pure hyperglyceridemia; E87.6 Hypokalemia; E86.0 Dehydration
CPT/HCPCS: 70553; 74176; 76937; 80048; 80053; 80061; 81001; 82140; 82248; 82607; 82746; 82948; 83036; 83690; 83735; 84443; 84478; 85007; 85027; 85652; 87040; 87641; 93005; 96361; 96374; 96375; A9579; J1644; J2270; J2405; J7030; J8540